=== PATIENT | male | born 1965 | race Caucasian/White ===

== ENCOUNTER → 2024-03-13 | Outpatient (CLI) | payer OTHER ==
--- NOTE | 2024-03-13 17:43 | MR ---
EXAMINATION TYPE: MR Prostate wo/w con DATE OF EXAM: 03/13/2024 10:17 AM COMPARISON: None. CLINICAL INDICATION: Male, 58 years old with history of R97.20 ELEVATED PSA; Elevated PSA x6-7 years/ Enlarged prostate TECHNIQUE: Multi-planar, multi-sequence imaging of the pelvis is performed prior to and following the uncomplicated administration of bolus intravenous gadolinium. CONTRAST: 9ml Gadavist Interpretive Criteria: PI-RADS v2.1 SERUM PSA: 7.92 (01/03) 6.5 (04/03) 4.6 (12/30) 3.17 (07/31 SURGICAL PATHOLOGY: No data available. FINDINGS: Prostatic dimensions: 5.2 x 5.6 x 3.7 cm. Ellipsoid Volume:56.41 (PSA density=0.14 ng/mL/mL) CENTRAL GLAND (Central and Transition Zones/CZ+TZ): Multiple bilateral, heterogenous appearing hypertrophic stromal nodules, without suspicious lesion. M edian lobe hypertrophy with protrusion into the base of the bladder. (PI-RADS 2) PERIPHERAL ZONE (PZ): Bilateral linear, indistinct wedgelike areas of low ADC, and low T2 signal, No evidence of masslike a bnormality, or localized perfusional hypervascularity, to further suggest a focus of clinically signi ficant prostate cancer. (PI-RADS 2) SEMINAL VESICLES (SV): Symmetric and unremarkable. PERIPROSTATIC TISSUES: Unremarkable. LYMPH NODES: No enlarged pelvic lymph node. REMAINING PELVIS: Bladder wall is within normal limits given distention. No abnormal free or organized intrapelvic fluid collection. No pathologic bowel dilation or mural thickening. No hernia visualized OSSEOUS STRUCTURES: No suspicious osseous abnormality. IMPRESSION: 1. No specific features for high-risk prostate cancer. Maximum PI-RADS score: 2. 2. Moderate BPH, estimated gland volume 56.41 mL. 3. No suspicious osseous lesion. No lymphadenopathy. No evidence of prostate adenocarcinoma involving the periprostatic tissues. [facility], Workstation: [id number], 03/13/2024 5:40 PM
== END | disposition home or self-care (01) ==
LOC: RADMRIMAIN 06:47
PROVIDERS: ATTEND Urology
CPT/HCPCS: 72197